=== PATIENT | male | born 1960 | race Caucasian/White ===

== ENCOUNTER 2017-12-10 13:02 | Emergency (ER) | payer MEDICAID, SELFPAY ==
[2017-12-10 13:03] VITALS: PULSE 95; RESP 30; TEMP 36.8; O2SAT 95; BMI 40.4
--- NOTE | 2017-12-10 13:07 | NURSING ---
NO OLD EKGS
--- NOTE | 2017-12-10 13:21 | RAD_ITS ---
STUDY: X-RAY CHEST REASON FOR EXAM: Female, 57 years old. Shortness of breath. Pain. Syncope TECHNIQUE: Frontal and lateral views of the chest. COMPARISON: None. FINDINGS: There is hyperinflation of the lungs consistent with chronic obstructive lung disease (COPD). Right lower lung atelectasis. There is no demonstrated pleural abnormality. Normal size heart. Normal mediastinum and art. Normal visualized pulmonary arteries. Normal visualized aortic arch and descending thoracic aorta. Normal visualized thoracic spine. Normal visualized ribs, clavicles, and shoulders. There is no demonstrated abnormality of the visualized soft tissue structures of the upper abdomen. RAD/Chest PA and Lateral IMPRESSION: COPD. Right lower lung atelectasis. Electronically Signed: Michael Hester MD at 14:54 EDT , Service support ,
--- NOTE | 2017-12-10 13:21 | EKG12_ITS ---
Test Reason : Blood Pressure : / mmHG Vent. Rate : 093 BPM Atrial Rate : 093 BPM P-R Int : 108 ms QRS Dur : 094 ms QT Int : 328 ms P-R-T Axes : 005 -13 056 degrees QTc Int : 407 ms Sinus rhythm with short TN Low voltage QRS (LIMB LEADS) Incomplete right bundle branch block Confirmed by SHERLY GARCIA, SVITLANA ([id number]), state editor MELISSA BUNCH ([id number] on 12/12/2017 1:09:00 PM Referred By: Joseph Landaverde Confirmed By:SVITLANA DUBOIS MD
[2017-12-10 13:30] LABS: Absolute Lymphocyte Count 0.69 X10^3/ul (0.83-4.51); Absolute Neutrophil Count 3.8 X10^3/uL (2.0-7.7); Basophil# 0.03 X10^3/uL; Basophil% 0.6 % (0-1); Eosinophil# 0.02 X10^3/uL; Eosinophils% 0.4 % (0-5); Hematocrit 47.7 % (37-47); Hemoglobin 16.4 g/dl (12.0-15.0); Lymphocyte # 0.69 X10^3/ul (4.0); Lymphocyte % 13.4 % (19-41); Mean Corp Hgb Conc 34.4 g/gl (32-36); Mean Corpuscular Hgb 31.7 pg (27.0-32.0); Mean Corpuscular Volume 92.3 fL (81-99); Mean Platelet Vol. 10.5 fl (6.2-12.0); Monocyte# 0.56 X10^3/uL; Monocyte% 10.9 % (0-10); Neutrophil # 3.84 X10^3/uL (2.7-7.7); Neutrophil % 74.5 % (47-70); Platelet Count 118 K/mm3 (150-450); RBC Distribution Width CV 13.1 % (11.6-14.6); RBC Distribution Width SD 43.3 fl (35.1-43.9); Red Blood Count 5.17 M/mm3 (4.2-5.4); White Blood Count 5.2 K/mm3 (4.4-11.0)
[2017-12-10 13:32] LABS: POSITIVE COUNT NO; POSITIVE DIFFERENTIAL NO; POSITIVE MORPHOLOGY NO
[2017-12-10] MEDS: 0.9% Normal Saline 1,000 ML 1000 ML IV (13:39)
[2017-12-10 13:49] LABS: Anion Gap 10 (5-15); BUN 18 mg/dL (7-18); BUN/Creat Ratio 14.6 RATIO (10-20); Calcium,Total 8.5 mg/dL (8.5-10.1); Chloride 100 mmol/L (98-107); Creatinine, Serum 1.23 mg/dL (0.55-1.02); EST Glomerular Filtration Rate 48 mL/min (>60); Est Glom Filt Rate - Afr Amer 58 mL/min (>60); Estimated Creatinine Clearance 51.47 ml/min; Glucose 122 mg/dL (74-106); Potassium 3.7 mmol/L (3.5-5.1); Sodium Level 139 mmol/L (136-145)
[2017-12-10 13:58] LABS: Lactic Acid 1.1 mmol/L (0.4-2.0)
[2017-12-10 14:04] VITALS: BP 119/74; PULSE 88; RESP 18; O2SAT 94
[2017-12-10 15:07] VITALS: BP 142/71; PULSE 84; RESP 22; O2SAT 99
[2017-12-10 15:21] LABS: Color, Urine Yellow (Yellow); Glucose, Dipstick Normal (Normal); Ketone-Dipstick 5 mg/dl (Negative); Leukocyte Esterase-Dipstick 25 /ul (Negative); Nitrite-Dipstick Negative (Negative); Occult Blood-Urine 10 /ul (Negative); Protein-Dipstick 30 mg/dl (Negative); Specific Gravity, Urine 1.025 (1.002-1.030); Urine Clarity Cloudy (Clear); Urine Urobilinogen 4 mg/dl (Normal)
[2017-12-10 15:23] LABS: Urine Bilirubin Dipstick 1 mg/dL (Negative)
--- NOTE | 2017-12-10 15:49 | ED.VISSUMM ---
- ER Visit Summary Date of Service: 12/10/17 Chief Complaint: Patient presents with numerous symptoms which include chest pain, nausea, feet cramping, passing out and left rib pain after most recent fall History of Present Illness: The patient is a 57 M who has a past medical history of COPD, hypertension and chronic pain. He was rising from a sitting position with became lightheaded spells and striking his chest against furniture. He denied head trauma. Denied any change in his vision. He denies neck pain, paresthesia, anesthesia motor weakness. He denies shortness of breath. Does have a chronic cough since he smokes 1 pack a day. He was a smoker of 2-3 packs a day. He denies symptoms of claudication. He complains of generalized weakness. He denies any neuropathic pain or paresthesias of his extremities. He denies headache, paresthesia, anesthesia medics. Please read written note for complete detail. Physical Examination: Vital signs are marked for elevated blood pressure 142/71. HEENT exam is remarkable for tobacco stained to his mustache. He has poor dentition. Heart is regular without murmur, gallop or rub. S1 and S2 are normal. Lungs are clear to auscultation with good movement of air bilaterally. Abdomen is soft nontender. There is no paraspinal megaly. There is tenderness over the left rib cage anterior axillary line the posterior axillary line rib, 6, 7 & 8. There is no tenderness in the left upper quadrant. There is no paraspinal megaly. There is no CVA tenderness. There is no evidence of trauma to the abdomen or flank. There is no pain the patient the pelvis. Hygiene is poor. GCS is 15. Patient is alert and oriented ?3. Motor is 5/5. Sensation is intact. DTRs are symmetric without clonus or Babinski. Cranial nerves II through XII are intact. Finger to nose to finger was performed adequately. Test Results: Two-view chest x-ray interpreted by me reveals atelectasis right base. There is no evidence of effusion, hemothorax, fractured ribs or pneumothorax. There are chronic changes noted. EKG reveals a sinus rhythm with shortened NJ interval. NJ interval is <80 ms. EKG is otherwise normal. Blood work reveals elevated H&H of 16.4 and 47.7 which may be secondary to polycythemia vera from smoking. He does have evidence of renal sufficiency with a creatinine 1.23 and GFR 48. Urine is remarkable for proteinuria and hematuria. Remainder of his tests are unremarkable. Emergency Department Course and Treatment: To evaluate patient's symptoms and EKG was obtained to evaluate for dysrhythmia and ischemia. Troponin since she is complained of chest pain for approximately 2 weeks. CBC to evaluate for anemia etc. BMP to assess kidney function and electrolytes. UA to assess for evidence of renal injury. Treatment Plan: Discharged to home to follow-up with his physician. Disposition: Discharged to home in stable condition. Patient reports he feels better after fluid bolus. Impression: 1. Orthostatic hypotension with fall, autonomic dysfunction 2. Left lower ribs contusion. 3. Tobacco abuse/use, 4. Renal insufficiency, 5. hematuria and proteinuria 6. Chest pain of unknown etiology This note was generated with [employer] dictation software. It may contain incorrect words, spelling, and punctuation that were not noted in review of the chart prior to signing ED Disposition - Plan for ED Patient: Disposition: Home or Assisted Living Chief Complaint: Chest Pain Instructions: ED Hypotension Orthostatic, ED Contusion Rib, ED Insufficiency Renal, ED Smoking Cessation Referrals: Phyllis Mehta, DEVONTE-C [Primary Care Provider] - 5-7 Days
--- NOTE | 2017-12-10 15:57 | ED.DCSUM_ITS ---
- ER Visit Summary Date of Service: 12/10/17 Chief Complaint: Patient presents with numerous symptoms which include chest pain, nausea, feet cramping, passing out and left rib pain after most recent fall History of Present Illness: The patient is a 57 M who has a past medical history of COPD, hypertension and chronic pain. He was rising from a sitting position with became lightheaded spells and striking his chest against furniture. He denied head trauma. Denied any change in his vision. He denies neck pain, paresthesia, anesthesia motor weakness. He denies shortness of breath. Does have a chronic cough since he smokes 1 pack a day. He was a smoker of 2-3 packs a day. He denies symptoms of claudication. He complains of generalized weakness. He denies any neuropathic pain or paresthesias of his extremities. He denies headache, paresthesia, anesthesia medics. Please read written note for complete detail. Physical Examination: Vital signs are marked for elevated blood pressure 142/ 71. HEENT exam is remarkable for tobacco stained to his mustache. He has poor dentition. Heart is regular without murmur, gallop or rub. S1 and S2 are normal. Lungs are clear to auscultation with good movement of air bilaterally. Abdomen is soft nontender. There is no paraspinal megaly. There is tenderness over the left rib cage anterior axillary line the posterior axillary line rib, 6, 7 & 8. There is no tenderness in the left upper quadrant. There is no paraspinal megaly. There is no CVA tenderness. There is no evidence of trauma to the abdomen or flank. There is no pain the patient the pelvis. Hygiene is poor. GCS is 15. Patient is alert and oriented ?3. Motor is 5/5. Sensation is intact. DTRs are symmetric without clonus or Babinski. Cranial nerves II through XII are intact. Finger to nose to finger was performed adequately. Test Results: Two-view chest x-ray interpreted by me reveals atelectasis right base. There is no evidence of effusion, hemothorax, fractured ribs or pneumothorax. There are chronic changes noted. EKG reveals a sinus rhythm with shortened RI interval. RI interval is <80 ms. EKG is otherwise normal. Blood work reveals elevated H&H of 16.4 and 47.7 which may be secondary to polycythemia vera from smoking. He does have evidence of renal sufficiency with a creatinine 1.23 and GFR 48. Urine is remarkable for proteinuria and hematuria. Remainder of his tests are unremarkable. Emergency Department Course and Treatment: To evaluate patient's symptoms and EKG was obtained to evaluate for dysrhythmia and ischemia. Troponin since she is complained of chest pain for approximately 2 weeks. CBC to evaluate for anemia etc. BMP to assess kidney function and electrolytes. UA to assess for evidence of renal injury. Treatment Plan: Discharged to home to follow-up with his physician. Disposition: Discharged to home in stable condition. Patient reports he feels better after fluid bolus. Impression: 1. Orthostatic hypotension with fall, autonomic dysfunction 2. Left lower ribs contusion. 3. Tobacco abuse/use, 4. Renal insufficiency, 5. hematuria and proteinuria 6. Chest pain of unknown etiology This note was generated with [employer] dictation software. It may contain incorrect words, spelling, and punctuation that were not noted in review of the chart prior to signing ED Disposition - Plan for ED Patient: Disposition: Home or Assisted Living Chief Complaint: Chest Pain Instructions: ED Hypotension Orthostatic, ED Contusion Rib, ED Insufficiency Renal, ED Smoking Cessation Referrals: Phyllis Mehta, DEVONTE-C [Primary Care Provider] - 5-7 Days
[2017-12-10 16:09] VITALS: BP 116/62; PULSE 89; RESP 21; O2SAT 97
== END 2017-12-10 16:09 | disposition home or self-care (01) ==
PROVIDERS: Emergency Provider Emergency Medicine; Family Provider Nurse Practitioner Family; PCP Nurse Practitioner Family
DX: I95.1 Orthostatic hypotension (principal); S20.212A Contusion of left front wall of thorax, initial encounter; W19.XXXA Unspecified fall, initial encounter; Y93.9 Activity, unspecified; Y92.89 Other specified places as the place of occurrence of the external cause; Y99.9 Unspecified external cause status; R05 Cough; Z72.0 Tobacco use; N28.9 Disorder of kidney and ureter, unspecified; R31.9 Hematuria, unspecified; R80.9 Proteinuria, unspecified; R07.9 Chest pain, unspecified; I10 Essential (primary) hypertension; J44.9 Chronic obstructive pulmonary disease, unspecified; G89.29 Other chronic pain
CPT/HCPCS: 71046; 80048; 81002; 83605; 84484; 85025; 93005; 96360; 99284; J7030

== ENCOUNTER → 2017-12-22 12:55 | Outpatient (CLI) | payer MEDICAID, SELFPAY ==
--- NOTE | 2017-12-22 13:01 | ECHOCS_ITS ---
Reason For Study: HTN Procedure This was a 2D Doppler, Color Flow transthoracic echocardiogram. The study was technically difficult. Contrast injection was performed. Exam performed in department. Left Ventricle Normal LV size. Mild concentric left ventricular hypertrophy. Left ventricular systolic function is normal. The estimated ejection fraction is 60 %. Transmitral doppler flow suggestive of impaired relaxation of left ventricle. No regional wall motion abnormalities noted. Right Ventricle Normal RV size. Normal systolic function. Atria Normal left atrium. Normal right atrium. No doppler evidence for ASD. Mitral Valve There is no mitral annular calcification. Normal mitral valve. Trivial mitral valve insufficiency. Tricuspid Valve Normal tricuspid valve. Trivial eccentric tricuspid valve insufficiency. Right ventricular systolic pressure estimated to be 30 mmHg. Aortic Valve Trisinus/trileaflet aortic valve. Mild focal aortic valve calcification. Pulmonic Valve The pulmonic valve is not well visualized. Trivial pulmonic valve insufficiency. Great Vessels Normal sized aortic root. Pericardium/Pleural No pericardial effusion. Medication 22 gauge I.V. with prn adaptor inserted into right arm. Diluted definity 3ml given slow IV push to enhance endocardial definition. MMode/2D Measurements & Calculations LVIDd: 5.3 cm IVSd: 1.4 cm Ao root diam: 3.2 cm LVIDs: 3.8 cm LVPWd: 1.3 cm LA dimension: 3.1 cm RVDd: 2.9 cm FS: 27.4 % LAV(MOD-bp): 37.1 ml EDV(MOD-sp4): 82.5 ml EDV(MOD-sp2): 110.1 ml LAV(MOD-bp) Indexed: 16.1 ml/m2 ESV(MOD-sp4): 34.4 ml EF(MOD-sp2): 70.5 % LAV(MOD-sp2): 42.9 ml EF(MOD-sp4): 58.4 % LAV(MOD-sp4): 33.0 ml SV(MOD-sp4): 48.2 ml SV(MOD-sp2): 77.6 ml LA A4 area: 14.2 cm2 RA A4 area: 12.2 cm2 Time Measurements MV dec time: 0.27 sec Doppler Measurements & Calculations MV E max hipolito: 55.1 cm/sec Lat Peak E' Hipolito: 8.3 cm/sec Med Peak E' Hipolito: 5.7 cm/sec MV A max hipolito: 69.3 cm/sec E/E' lat: 6.6 E/E' med: 9.6 MV E/A: 0.79 Ao V2 max: 127.9 cm/sec LV V1 max: 118.6 cm/sec PA V2 max: 80.7 cm/sec Ao max P.6 mmHg LV V1 max P.6 mmHg TR max hipolito: 261.7 cm/sec TR max P.4 mmHg Interpretation Summary The study was technically difficult. Contrast injection was performed. Left ventricular systolic function is normal. The estimated ejection fraction is 60 %. Mild concentric left ventricular hypertrophy. Trivial mitral valve insufficiency. Trivial eccentric tricuspid valve insufficiency. Mild focal aortic valve calcification. Trivial pulmonic valve insufficiency. Right ventricular systolic pressure estimated to be 30 mmHg. Transmitral doppler flow suggestive of impaired relaxation of left ventricle Ordering Physician: KERWIN Dale Referring Physician: KERWIN Dale Performed By: Reina Crain, MAXX, RVT
== END ==
PROVIDERS: Family Provider Nurse Practitioner Family; PCP Nurse Practitioner Family; Visit Provider Nurse Practitioner Family
DX: R55 Syncope and collapse (principal); I10 Essential (primary) hypertension; G47.34 Idiopathic sleep related nonobstructive alveolar hypoventilation; R06.02 Shortness of breath
CPT/HCPCS: 93225; 93226; 93306; Q9957; A4216; C8929